=== PATIENT | female | born 1990 | race Caucasian/White ===

== ENCOUNTER 2018-09-23 05:47 | Emergency (ER) | payer OTHER ==
[~2018-09-23] VITALS: Ht 165.1 cm; Wt 86.2 kg
--- OUTSIDE RECORDS SUMMARY | 2018-09-23 05:51 | XMS REPORT | Clinical Summary ---
Author Author RANJAN [facility] Address Unknown Phone Unavailable Care Team Providers Care Calender Roll Operator Name Role Phone Chinmay Sears PCP Allergies No Known Allergies Medications End Date Status Medication Sig Dispensed Refills Start Date Active HYDROcodone-acetaminophen Take 1 tablet 0 (NORCO 7.5-325) 7.5-325 by mouth mg per tablet every 12 (twelve) hours as needed for Pain. Active gabapentin (NEURONTIN) Take 300 mg 0 300 MG capsule by mouth 3 (three) times daily. Active dextroamphetamine-ampheta Take 20 mg by 0 mine (ADDERALL XR) 20 MG mouth every 24 hr capsule morning. Active Problems Problem Noted Date Hypokalemia 08/20/2016 Leukocytosis 08/18/2016 Hypoalbuminemia 08/18/2016 Insomnia 08/18/2016 Depression 08/15/2016 Normocytic anemia 08/15/2016 Admission for antineoplastic chemotherapy 07/18/2016 Encounter for antineoplastic chemotherapy 06/27/2016 Cancer related pain 06/27/2016 Generalized anxiety disorder 06/27/2016 Lymphoma 05/31/2016 Maintenance chemotherapy 05/06/2016 Diffuse large B cell lymphoma 05/06/2016 Social History Date Tobacco Use Types Packs/Day Years Used Current Some Day Smoker Cigarettes 1 Tobacco Cessation: Ready to Quit: No; Counseling Given: Yes Alcohol Use Drinks/Week oz/Week Comments No Sex Assigned at Date Recorded Not on file Industry Job Start Date Occupation Not on file Not on file Not on file Travel End Travel History Travel Start No recent travel history available. Last Filed Vital Signs Not on file Plan of Treatment Not on file Results Not on fileafter 09/22/2017 Insurance Payer Benefit Subscriber ID Type Phone Address Plan / Group [employer]UE [employer] BCBS ADV xxxxxxxxxxxx [phone] [address] [place] [address] EXCHANGE Advance Directives For more information, please contact: [facility] [address] [place] [address] Date Inactivated Comments Code Status Date Activated 05/11/2016 8:33 PM Full Code 05/06/2016 12:24 PM This code status was determined by: Patient
--- OUTSIDE RECORDS SUMMARY | 2018-09-23 05:51 | XMS REPORT ---
Author Author [facility] Address Unknown Phone Unavailable Care Team Providers Care Biostatistics Professor Name Role Phone ANNAMARIA MALINI PREMAL Unavailable Unavailable ALMA MATIAS Unavailable Unavailable Problems This patient has no known problems. Allergies, Adverse Reactions, Alerts This patient has no known allergies or adverse reactions. Medications This patient has no known medications. Results Test Description Test Time Test Comments Text Results Atomic Results Result Comments PLATELET COUNT 2017-05-23 08:00:00 PLATELET COUNT (MIO) (test fsqm=194) 202 K/CU MM 150-430 [id number] 07:40:00* Test Item Value Reference Range Comments PROTIME (MIO) (test krga=883) 13.2 seconds 11.7-14.7 INR (BEAKER) (test ceft=262) 1.0 <=5.9 PARTIAL THROMBOPLASTIN TIME (JIMBOAKER) (test rmex=043) 26.7 seconds 22.5-36.0 RECOMMENDED COUMADIN/WARFARIN INR THERAPY RANGESSTANDARD DOSE: 2.0 - 3.0 Inclu ale: PROPHYLAXIS for venous thrombosis, systemic embolization; TREATMENT for asia ous thrombosis and/or pulmonary embolus.HIGH RISK: Target INR is 2.5-3.5 for pat ients with mechanical heart valves.[id number] 09:16:00* Test Item Value Reference Range Comments POC-CREATININE (MIO) (test adsk=4382) 0.5 mg/dL 0.6-1.3 [address]ED AT [address] [address] POC-EGFR (MIO) (test upxn=0112) 147 mL/min/1.73M2
[2018-09-23] MEDS ORDERED: SODIUM CHLORIDE 0.9% 1000ML 1,000 ML IV ONE (06:15)
[2018-09-23] MEDS ORDERED: ACETAMINOPHEN 325 MG TAB PO ONE (06:15)
[2018-09-23 06:37] LABS: BASOPHILS % 0.8 % (0.0-1.0); EOSINOPHILS # (AUTO) 0.2 (0.0-0.4); HEMATOCRIT 39.5 % (34.2-44.1); HEMOGLOBIN 13.3 g/dL (12.0-16.0); LYMPHOCYTES # (AUTO) 0.6 (1.0-3.2); LYMPHOCYTES % 12.1 % (18.0-39.1); MEAN CORPUSCULAR HEMOGLOBIN 32.3 pg (28-32); MEAN CORPUSCULAR HGB CONC 33.7 g/dL (31-35); MEAN CORPUSCULAR VOLUME 95.9 fL (81-99); MONOCYTES # (AUTO) 0.4 (0.2-0.8); MONOCYTES % 7.3 % (4.4-11.3); NEUTROPHILS # (AUTO) 3.8 (2.1-6.9); NEUTROPHILS % 75.6 % (38.7-80.0); PLATELET COUNT 220 x10e3/uL (140-360); RED BLOOD COUNT 4.12 x10e6/uL (3.6-5.1); RED CELL DISTRIBUTION WIDTH 12.8 % (11.7-14.4)
[2018-09-23 06:42] LABS: CLARITY,URINE CLOUDY (CLEAR); COLOR,URINE YELLOW (YELLOW)
[2018-09-23 06:43] LABS: KETONES,URINE NEGATIVE (NEGATIVE); LEUKOCYTE ESTERASE ,URINE 2+ (NEGATIVE); NITRITE,URINE POSITIVE (NEGATIVE); PROTEIN,URINE DIPSTICK TRACE (NEGATIVE); URINE UROBILINOGEN 1 mg/dL (0.2 - 1)
[2018-09-23 06:44] LABS: BILIRUBIN,URINE NEGATIVE (NEGATIVE); PREGNANCY TEST, URINE NEGATIVE (NEGATIVE)
--- NOTE | 2018-09-23 06:51 | Diagnostic Imaging Report ---
History: Pain, history of lymphoma Comparison studies: None Technique: Axial images were obtained from the skull base to the vertex. Coronal and sagittal reconstructions obtained from the axial data. Dose modulation, iterative reconstruction, and/or weight based adjustment of the mA/kV was utilized to reduce the radiation dose to as low as reasonably achievable. Findings: Scalp/skull: No abnormalities. No fractures, blastic or lytic lesions. Extra-axial spaces: No masses. No fluid collections. Incidental 5 mm arachnoid cyst in the right choroidal fissure. Brain sulci: Appropriate for age. Ventricles: Normal in size and configuration. No hydrocephalus. Parenchyma: No abnormal densities. No masses, hemorrhage, acute or chronic cortical vascular insults. Sellar/suprasellar region: No abnormalities Craniocervical junction: Patent foramen magnum. No Chiari one malformation. IMPRESSION: No abnormalities. Signed by: Dr. Cory Meehan M.D. on 09/23/2018 6:48 AM
[2018-09-23 06:52] LABS: ALANINE AMINOTRANSFERASE 14 IU/L (0-55); ALBUMIN 3.7 g/dL (3.5-5.0); ALKALINE PHOSPHATASE 86 IU/L (40-150); ANION GAP 17.1 mmol/L (8-16); BLOOD UREA NITROGEN 7 mg/dL (7-26); BUN/CREATININE RATIO 9 (6-25); CALCIUM 8.5 mg/dL (8.4-10.2); CARBON DIOXIDE 23 mmol/L (22-29); CHLORIDE 102 mmol/L (98-107); CREATININE, SERUM 0.76 mg/dL (0.57-1.11); EST GLOMERULAR FILTRATION RATE > 60 ML/MIN (60-); GLUCOSE 107 mg/dL (74-118); POTASSIUM 4.1 mmol/L (3.5-5.1); SODIUM 138 mmol/L (136-145)
[2018-09-23 06:52] LABS: BACTERIA,URINE MANY /HPF; EPITHELIAL CELLS,URINE MANY /LPF; RBC,URINE 0-5 /HPF (0-5)
--- NOTE | 2018-09-23 06:53 | Diagnostic Imaging Report ---
History: Pain Comparison studies: None Technique: Axial images were obtained through the cervical region.. Coronal and sagittal images reconstructed from the axial data. Dose modulation, iterative reconstruction, and/or weight based adjustment of the mA/kV was utilized to reduce the radiation dose to as low as reasonably achievable. Intravenous contrast: None Findings: Fractures: None. Soft tissues: No gross abnormalities. Atlantoaxial articulation: Intact. Alignment: Straightening of the usual lordosis is probably positional. No scoliosis. Cervicomedullary junction: No abnormalities. The foramen magnum is patent. Vertebrae: No infection or neoplasm. Degenerative changes: None. IMPRESSION: 1. No abnormalities. 2. Cannot adequately evaluate for ligament, spinal cord and or vascular abnormalities. Signed by: Dr. Cory Meehan M.D. on 09/23/2018 6:49 AM
[2018-09-23] MEDS ORDERED: CEFTRIAXONE SOD 1 GM VIAL IV ONE (07:00)
--- NOTE | 2018-09-23 07:23 | Diagnostic Imaging Report ---
EXAMINATION: CHEST 2 VIEWS INDICATION: Fever, history of lymphoma COMPARISON: None FINDINGS: PA and lateral views TUBES and LINES: None. LUNGS: Lungs are well inflated. There is no evidence of pneumonia or pulmonary edema. Linear band of left perihilar scarring or subsegmental atelectasis, visible only on PA image. PLEURA: No pleural effusion or pneumothorax. HEART AND MEDIASTINUM: The cardiomediastinal silhouette is unremarkable. BONES AND SOFT TISSUES: No focal osseous lesions. Soft tissues are unremarkable. UPPER ABDOMEN: No free air under the diaphragm. IMPRESSION: Left perihilar subsegmental atelectasis or scar. This may be the result of treatment. Signed by: Dr. Micky Almanza MD on 09/23/2018 7:20 AM
[2018-09-23] MEDS ORDERED: CYCLOBENZAPRINE HCL 10 MG TAB PO ONE (07:45)
== END 2018-09-23 08:06 | disposition home or self-care (01) ==
LOC: ER 05:47
DX: G44.219 Episodic tension-type headache, not intractable (principal); S16.1XXA Strain of muscle, fascia and tendon at neck level, initial encounter; N30.90 Cystitis, unspecified without hematuria; Z85.72 Personal history of non-Hodgkin lymphomas; F17.210 Nicotine dependence, cigarettes, uncomplicated
CPT/HCPCS: 36415; 70450; 71046; 72125; 80053; 81001; 81025; 85025; 87086; 87186; 99284; J0696; J7030

== ENCOUNTER 2018-10-22 13:41 | Emergency (ER) | payer OTHER ==
[~2018-10-22] VITALS: Ht 162.6 cm; Wt 86.2 kg
--- OUTSIDE RECORDS SUMMARY | 2018-10-22 13:44 | XMS REPORT | Clinical Summary ---
Author Author RANJAN [facility] Address Unknown Phone Unavailable Care Team Providers Care Machine Adjuster Name Role Phone Chinmay Sears PCP Allergies [...] Not on file Results Not on fileafter 10/21/2017 Insurance Payer Benefit Subscriber ID Type Phone Address Plan / Group [employer]UE [employer] BCBS ADV xxxxxxxxxxxx [phone] [address] [place] [address] EXCHANGE Advance Directives For more information, please contact: [facility] [address] [place] [address] Date Inactivated Comments Code Status Date Activated 05/11/2016 8:33 PM Full Code 05/06/2016 12:24 PM This code status was determined by: Patient
== END 2018-10-22 14:27 | disposition home or self-care (01) ==
LOC: FSED 13:41
DX: S61.211A Laceration without foreign body of left index finger without damage to nail, initial encounter (principal); W45.8XXA Other foreign body or object entering through skin, initial encounter; Y92.008 Other place in unspecified non-institutional (private) residence as the place of occurrence of the external cause; F17.210 Nicotine dependence, cigarettes, uncomplicated
CPT/HCPCS: 99282

== ENCOUNTER 2019-07-20 10:23 | Emergency (ER) | payer MEDICARE, OTHER ==
[~2019-07-20] VITALS: Ht 162.6 cm; Wt 86.2 kg
--- OUTSIDE RECORDS SUMMARY | 2019-07-20 10:26 | XMS REPORT | Clinical Summary ---
Author Author RANJAN [facility] Address Unknown Phone Unavailable Care Team Providers Care Roller Embosser Name Role Phone Chinmay Sears PCP Allergies [...] Not on file Results Not on fileafter 07/19/2018 Insurance Payer Benefit Subscriber ID Type Phone Address Plan / Group [employer] BCBS ADV xxxxxxxxxxxx [phone] [address] [place] [address] EXCHANGE Advance Directives For more information, please contact: [facility] [address] [place] [address] Date Inactivated Comments Code Status Date Activated 05/11/2016 8:33 PM Full Code 05/06/2016 12:24 PM This code status was determined by: Patient
[2019-07-20] MEDS ORDERED: HYDROCODONE/APAP 7.5MG-325MG 1 EA TAB PO ONE (10:45)
--- NOTE | 2019-07-20 11:46 | Diagnostic Imaging Report ---
RIGHT LOWER LEG X-RAY - 3 VIEWS, RIGHT ANKLE X-RAY, 3 VIEWS HISTORY: ^FALL ^[id number] ^[id number] COMPARISON: None available. FINDINGS: Bones: Acute mildly displaced oblique fracture of the distal fibula at the level of the plafond. Mild widening of the medial malleolus suggestive of ligament injury. Joints: The joint spaces are well-maintained. Soft tissues: Soft tissue swelling surrounding the ankle. IMPRESSION: Acute mildly displaced fracture of the distal right fibula. Widening of the medial malleolus suggestive of medial collateral ligament injury. Signed by: Dr. Collette Rodriguez M.D. on 07/20/2019 11:43 AM
== END 2019-07-20 12:49 | disposition home or self-care (01) ==
LOC: ER 10:23
DX: S82.831A Other fracture of upper and lower end of right fibula, initial encounter for closed fracture (principal); W01.190A Fall on same level from slipping, tripping and stumbling with subsequent striking against furniture, initial encounter; Y92.001 Dining room of unspecified non-institutional (private) residence as the place of occurrence of the external cause; S83.411A Sprain of medial collateral ligament of right knee, initial encounter; F17.200 Nicotine dependence, unspecified, uncomplicated; C83.30 Diffuse large B-cell lymphoma, unspecified site
CPT/HCPCS: 99284